=== PATIENT | female | born 1945 | race African-American/Black ===

== ENCOUNTER → 2016-11-25 | Outpatient (CLI) | payer OTHER, MEDICARE ==
[2015-09-28 19:45] VITALS: BP 150/88
[~2016-11-25] MED LIST: ONDA4TAB10 PO
--- NOTE | 2016-11-25 14:28 | RAD ---
Right knee radiographs History: Anterior right knee pain for one week. Comparison: None. Findings: AP, lateral, and oblique views of the right knee. No acute fracture or dislocation is identified. No joint effusion is seen. Small quadriceps tendon insertional enthesophyte is present. No significant degenerative change is seen. Impression: No acute osseous abnormality identified.
== END | disposition home or self-care (01) ==
LOC: DXRADRC 10:05
PROVIDERS: ATTEND Family Medicine
DX: M25.561 Pain in right knee (principal)
CPT/HCPCS: 73562

== ENCOUNTER 2019-06-13 20:50 | Emergency (ER) | payer MEDICARE, OTHER ==
[~2019-06-13] VITALS: Ht 162.6 cm; Wt 91.0 kg
--- NOTE | 2019-06-13 21:41 | PHYS DOC ---
Past History Past Medical History: Cancer Past Surgical History: Cholecystectomy, Hysterectomy, Other Additional Past Surgical Histo: right breat mass and lymphnode removed Alcohol Use: None Drug Use: None Adult General Chief Complaint Chief Complaint: MECHANICAL FALL HPI HPI 74-year-old female presents after fall at home. The patient slipped on the ice. She hit her head. She was able to immediately get up and continue doing what she was doing. She has a mild headache. She denies loss of consciousness. She reached up to the area where she hit her head and found some blood. She believe she has a laceration of the right side of her scalp. She denies dizziness, nausea, vomiting, altered sensation. She has no other complaints at this time. She is not on any antiplatelets or anticoagulants medications. Review of Systems Review of Systems Constitutional: Denies fever or chills [] Eyes: Denies change in visual acuity, redness, or eye pain [] HENT: Denies nasal congestion or sore throat [] Respiratory: Denies cough or shortness of breath [] Cardiovascular: No additional information not addressed in HPI [] GI: Denies abdominal pain, nausea, vomiting, bloody stools or diarrhea [] : Denies dysuria or hematuria [] Musculoskeletal: Denies back pain or joint pain [] Integument: Scalp laceration[] Neurologic: Denies headache, focal weakness or sensory changes [] Endocrine: Denies polyuria or polydipsia [] All other systems were reviewed and found to be within normal limits, except as documented in this note. Allergies Allergies Allergies Coded Allergies Type Severity Reaction Last Updated Verified Penicillins Allergy Severe Rash 09/28/15 Yes prochlorperazine Allergy Severe 09/28/15 Yes Physical Exam Physical Exam Constitutional: Well developed, well nourished, no acute distress, non-toxic appearance. [] HENT: Normocephalic, atraumatic, bilateral external ears normal, oropharynx moist, no oral exudates, nose normal. [] Eyes: PERRLA, EOMI, conjunctiva normal, no discharge. [] Neck: Normal range of motion, no tenderness, supple, no stridor. [] Cardiovascular:Heart rate regular rhythm, no murmur [] Lungs & Thorax: Bilateral breath sounds clear to auscultation [] Abdomen: Bowel sounds normal, soft, no tenderness, no masses, no pulsatile masses. [] Skin: 2 cm laceration of the right scalp above the ear.[] Back: No tenderness, no CVA tenderness. [] Extremities: No tenderness, no cyanosis, no clubbing, ROM intact, no edema. [] Neurologic: Alert and oriented X 3, normal motor function, normal sensory function, no focal deficits noted. [] Psychologic: Affect normal, judgement normal, mood normal. [] Current Patient Data Vital Signs Vital Signs Date Time Temp Pulse Resp B/P (MAP) Pulse Ox O2 Delivery O2 Flow Rate FiO2 06/13/19 21:08 97.4 78 18 100 Room Air EKG EKG [] Radiology/Procedures Radiology/Procedures [] Course & Med Decision Making Course & Med Decision Making Pertinent Labs and Imaging studies reviewed. (See chart for details) The patient's head CT is negative for acute findings. I was able to repair the laceration was andreas. See note below for more details. The patient is stable for discharge at this time. [] Dragon Disclaimer Dragon Disclaimer This electronic medical record was generated, in whole or in part, using a voice recognition dictation system. Laceration Repair Lac Repair Indication: 2 cm linear laceration of the right scalp Procedure: Verbal consent was obtained from the patient for staple repair of her laceration. The wound was thoroughly irrigated with normal saline under pressure. No foreign bodies were found. No anesthesia was used. There were 3 andreas placed across the wound. There was good skin approximation. Bleeding was controlled. Total repaired wound length: 2 cm. Other Items: None The patient tolerated the procedure well. Complications: None. Departure Departure: Impression: Primary Impression: Fall due to slipping on ice or snow Additional Impression: Scalp laceration Disposition: 01 HOME, SELF-CARE Condition: IMPROVED Referrals: WEST PETERSON MD (PCP) Patient Instructions: Staple Wound Closure, [id number] Problem Qualifiers Primary Impression: Fall due to slipping on ice or snow Encounter type: initial encounter Qualified Codes: W00.9XXA - Unspecified fall due to ice and snow, initial encounter Additional Impression: Scalp laceration Encounter type: initial encounter Qualified Codes: S01.01XA - Laceration without foreign body of scalp, initial encounter DILLAN RITCHIE DO Jun 13, 2019 21:41
--- NOTE | 2019-06-13 22:34 | RAD ---
PQRS Compliance Statement: One or more of the following individualized dose reduction techniques were utilized for this examination: 1. Automated exposure control 2. Adjustment of the mA and/or kV according to patient size 3. Use of iterative reconstruction technique CT HEAD WITHOUT CONTRAST History: Fall, laceration. Comparison: CT head without contrast September 28, 2015. Technique: Axial images are obtained of the head from the skull base through the vertex without IV contrast. Findings: No mass-effect, midline shift, extra-axial fluid collection, hemorrhage, or obvious acute infarction is identified. Basilar cisterns are patent. Mild generalized cerebral atrophy. Bone windows demonstrate no acute calvarial abnormality. Medial deviation of the left orbital wall may be congenital or due to old trauma. Mild right parietal scalp hematoma. The visualized paranasal sinuses are clear. Mastoid air cells are well aerated. IMPRESSION: 1. No acute intracranial abnormality. Electronically signed by: Jamel Pope MD (06/13/2019 10:31 PM) [facility]
[2019-06-13 22:40] VITALS: BP 163/79
[2019-06-13] MEDS: ACETAMINOPHEN 500 MG TABLET PO ONE (22:50)
== END 2019-06-13 22:50 | disposition home or self-care (01) ==
LOC: ER 20:50
DX: S01.01XA Laceration without foreign body of scalp, initial encounter (principal); Z88.0 Allergy status to penicillin; Z88.8 Allergy status to other drugs, medicaments and biological substances; W00.0XXA Fall on same level due to ice and snow, initial encounter; Y93.89 Activity, other specified; Y92.098 Other place in other non-institutional residence as the place of occurrence of the external cause; Y99.8 Other external cause status
CPT/HCPCS: 12001; 70450; 99284-25

== ENCOUNTER → 2019-09-09 | Outpatient (CLI) | payer MEDICARE, OTHER ==
--- NOTE | 2019-09-09 16:53 | RAD ---
Three-view study left shoulder Clinical indications: Left shoulder pain. FINDINGS: No acute fracture or dislocation or lytic process is seen. 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 No AC joint separation is seen. There is spurring of the inferior edge of the acromial process. These findings may impinge the acromial humeral space resulting in rotator cuff disease. IMPRESSION: Impingement of the acromial humeral space which may result in rotator cuff disease. Electronically signed by: Haroldo Matthews MD (09/09/2019 4:50 PM) [facility]
== END ==
LOC: PMG 16:21
PROVIDERS: ATTEND Registered Nurse
DX: M19.012 Primary osteoarthritis, left shoulder (principal); M25.812 Other specified joint disorders, left shoulder
CPT/HCPCS: 73030

== ENCOUNTER → 2020-10-27 | Outpatient (CLI) | payer MEDICARE, OTHER ==
--- NOTE | 2020-10-28 12:54 | RAD ---
DATE: 10/27/2020 2:30 PM EXAM: MG 2D BILAT SCREENING HISTORY: routine screening evaluation. COMPARISON: 06/03/2015 Bilateral full field craniocaudal and mediolateral oblique images were obtained using digital [employer] ue. This study was interpreted with the benefit of Computerized Aided Detection (CAD). FINDINGS: Breast Density: SCATTERED The breast parenchyma shows scattered fibroglandular densities. Breast par enchyma level B Focal asymmetry at the superior right breast approximately 5 cm from the nipple is seen. No suspiciou s right breast microcalcification or architectural distortion is seen. No suspicious masses, microcalcifications or architectural distortion is present to suggest malignanc y in the left breast. The visualized axillae are unremarkable. IMPRESSION: Right breast focal asymmetry, findings for which additional imaging is advised. BI-RADS CATEGORY: 0 INCOMPLETE: NEEDS ADDITIONAL IMAGING EVALUATION AND/OR PRIOR MAMMOGRAMS FOR JENNIFER RISON. RECOMMENDED FOLLOW-UP: ADD ADDITIONAL IMAGING The patient will be contacted to return for additional imaging and a supplemental report will follow. PQRS compliance statement: Patient information was entered into a reminder system with a target due d ate for the next mammogram. Mammography is a sensitive method for finding small breast cancers, but it does not detect them all a nd is not a substitute for careful clinical examination. A negative mammogram does not negate a clin ically suspicious finding and should not result in delay in biopsying a clinically suspicious abnorma lity. "Our facility is accredited by the [employer] Mammography Program." Electronically signed by: Martir Ly MD (10/28/2020 12:52 PM) [id number]
== END ==
LOC: MAMMO 14:23
PROVIDERS: ATTEND Family Medicine
DX: Z12.31 Encounter for screening mammogram for malignant neoplasm of breast (principal)
CPT/HCPCS: 77067